=== PATIENT | male | born 1955 | race Hispanic/Latino ===

== ENCOUNTER 2018-01-03 10:20 | Inpatient (IN) | payer BC ==
[2017-12-05 11:10] VITALS: BMI 25.0
[2018-01-03] MEDS ORDERED: Midazolam 2 MG/2 ML VIAL ONE (12:07)
[2018-01-03] MEDS ORDERED: Propofol 10 mg/ml Inj (20 ML) ONE (12:08)
[2018-01-03] MEDS ORDERED: Lidocaine 2% Jelly (Uro-Jet) ONE (12:12)
[2018-01-03] MEDS ORDERED: Ciprofloxacin 400mg/200ml D5W 400 MG/200 ML BAG IVPB ONE (12:12)
[2018-01-03] MEDS ORDERED: Gentamicin 160 MG in Sodium Chloride 0.9% 100 ML IVPB ONE (12:30)
--- NOTE | 2018-01-03 13:50 | PCM.SURG1 ---
Surgeon's Initial Post Op Note - Surgeon's Notes Surgeon: Rose Norris Senior Restaurant Manager: NONE Type of Anesthesia: General LMA Pre-Operative Diagnosis: Urinary retention. BPH Operative Findings: same Post-Operative Diagnosis: same Operation Performed: TURP Specimen/Specimens Removed: urine. Prostate Estimated Blood Loss: EBL {In ML}: 150 Blood Products Given: N/A Post-Op Condition: Good Date of Surgery/Procedure: 01/03/18 Time of Surgery/Procedure: 13:50
[2018-01-03] MEDS: HYDROmorphone 0.5 mg/0.5 ml ISec IVP PRN ×3 (13:55→16:14)
[2018-01-03] MEDS ORDERED: HYDROmorphone 0.5 mg/0.5 ml ISec ONE (13:58)
[2018-01-03] MEDS ORDERED: Potassium Ch 20mEq in D5-1/2NS 1,000 ML IV SCH (14:00)
[2018-01-03] MEDS ORDERED: Lactated Ringer's 1,000 ML IV SCH (14:15)
--- NOTE | 2018-01-03 16:10 | CP.PCM.HP ---
Past Patient History - Past Medical History & Family History Past Medical History?: Yes - Past Social History Smoking Status: Never Smoked - CARDIAC Hx Cardiac Disorders: No - PULMONARY Hx Respiratory Disorders: No - NEUROLOGICAL Hx Neurological Disorder: No - HEENT Hx HEENT Problems: No - RENAL Hx Chronic Kidney Disease: No - ENDOCRINE/METABOLIC Hx Endocrine Disorders: Yes Hx Hyperthyroidism: Yes - HEMATOLOGICAL/ONCOLOGICAL Hx Blood Disorders: No - INTEGUMENTARY Hx Dermatological Problems: No - MUSCULOSKELETAL/RHEUMATOLOGICAL Hx Musculoskeletal Disorders: Yes Hx Falls: Yes Hx Fractures: Yes (Left ankle) Hx Herniated Disk: Yes (Lower back) Hx Osteoarthritis: Yes (Right shoulder) - GASTROINTESTINAL Hx Gastrointestinal Disorders: Yes Hx Bowel Surgery: Yes (BOWEL RESECTIO FOR DIVERTICULITIS) Hx Diverticulitis: Yes - GENITOURINARY/GYNECOLOGICAL Hx Genitourinary Disorders: Yes Hx Bladder Stone: Yes Hx Prostate Problems: Yes Other/Comment: HX: "BLADDER STONES" STENTS PLACED AND REMOVED. HX: URINARY RETENTION-PT. HAS URINARY CATHETER-RETENTION STARTED AFTER SURGERY FOR DIVERTULITIS - PSYCHIATRIC Hx Psychophysiologic Disorder: No - SURGICAL HISTORY Hx Surgeries: Yes Hx Herniorrhaphy: Yes (UMBILICAL) - ANESTHESIA Hx Anesthesia: Yes Hx Anesthesia Reactions: No Hx Malignant Hyperthermia: No Meds Allergies/Adverse Reactions: Allergies Allergy/AdvReac Type Severity Reaction Status Date / Time No Known Allergies Allergy Verified 08/14/16 11:00 Results - Vital Signs Recent Vital Signs: Last Vital Signs Temp 97 F L 01/03/18 13:50 Pulse 67 01/03/18 15:05 Resp 17 01/03/18 15:05 BP 125/75 01/03/18 15:05 Pulse Ox 100 01/03/18 15:05
[2018-01-03 17:17] VITALS: RESP 20
[2018-01-03] MEDS: Oxycodone/Acetaminophen 5/325 mg Tab PO PRN (21:14)
[2018-01-03] MEDS: Ciprofloxacin 400mg/200ml D5W 400 MG/200 ML BAG IVPB SCH (21:53)
[2018-01-04] MEDS: Oxycodone/Acetaminophen 5/325 mg Tab PO PRN ×2 (03:05→09:41)
[2018-01-04 07:43] LABS: HEMOGLOBIN 14.5 g/dL (12.0-18.0); MEAN CELL VOLUME 86.8 fL (80.0-94.0); MEAN CORPUSCULAR HEMOGLOBIN 29.4 pg (27.0-31.0); MEAN CORPUSCULAR HGB CONC 33.9 g/dL (33.0-37.0); MEAN PLATELET VOLUME 8.5 fL (7.2-11.7); RBC 4.92 Mil/uL (4.40-5.90); RED CELL DISTRIBUTION WIDTH 13.6 % (11.5-14.5); WHITE BLOOD COUNT 11.5 K/uL (4.8-10.8)
[2018-01-04 08:05] VITALS: O2SAT 96
[2018-01-04 08:10] LABS: BLOOD UREA NITROGEN 13 mg/dL (9-20); CALCIUM 8.7 mg/dl (8.6-10.4); GFR AFRICAN-AMERICAN > 60; GFR NON-AFRICAN AMERICAN > 60
[2018-01-04] MEDS: Ciprofloxacin 400mg/200ml D5W 400 MG/200 ML BAG IVPB SCH (09:34)
[2018-01-04] MEDS ORDERED: methIMAzole 5 MG TAB PO SCH (10:00)
--- NOTE | 2018-01-04 16:00 | CP.PCM.PN ---
Subjective - Date & Time of Evaluation Date of Evaluation: 01/04/18 Time of Evaluation: 16:00 - Subjective Subjective: PATIENT WAS ADMITTED FOR BPH DENIES CHEST PAIN SOB DENIES DYSURIA NO SIGN OF DISTRESS NOTED Objective - Vital Signs/Intake and Output Vital Signs (last 24 hours): Temp Pulse Resp BP Pulse Ox 98.0 F 74 20 118/73 96 01/04/18 07:00 01/04/18 07:00 01/04/18 07:00 01/04/18 07:00 01/04/18 07:00 Intake and Output: 01/04/18 01/04/18 06:59 18:59 Intake Total 820 850 Output Total 650 3000 Balance 170 -2150 - Medications Medications: Current Medications Docusate Sodium (Colace) 100 mg PO TID [facility] Last Admin: 01/04/18 13:20 Dose: 100 mg Finasteride (Proscar) 5 mg PO DAILY [facility] Last Admin: 01/04/18 09:34 Dose: 5 mg Ciprofloxacin (Cipro 400mg/200ml Dsw) 400 mg in 200 mls @ 133 mls/hr IVPB Q12H MAAME PRN Reason: Protocol Last Admin: 01/04/18 09:34 Dose: 133 mls/hr Methimazole (Tapazole) 5 mg PO DAILY [facility] Last Admin: 01/04/18 09:34 Dose: 5 mg Oxycodone/Acetaminophen (Percocet 5/325 Mg Tab) 1 tab PO Q4H PRN PRN Reason: Pain, moderate (4-7) Stop: 01/06/18 14:01 Last Admin: 01/04/18 09:41 Dose: 1 tab - Labs Labs: 01/04/18 07:36 01/04/18 07:36 Assessment and Plan - Assessment and Plan (Free Text) Assessment: PATIENT SEEN AND EXAMINED AT THE BEDSIDE DAVIS CATH IN PLACE / URINE LIGHT PINK COLOR / NO BLOOD CLOT NOTED DISCUSS WITH DR CHOW WHO CLEAR FOR DC FOLLOW UP WITH DR CHOW IN HIS OFFICE IN 1-2 WEEK ---CALL FOR APPOITMENT FOLLOW UP WITH DR ALCARAZ IN HIS OFFICE ---CALL FOR APPOINTMENT CONTINUE HOME MEDICATION NEW PRESCRIPTION GIVEN PROSCAR 5 MG PO DAILY COLACE 100 MG PO TID FOR 7 DAYS WITH PERCOCET PRESCRIPTION GIVEN BY DR ALCARAZ IN THE CHART ACITIVIY TOLERATED DAVIS CATH CARE DRINK PLENTY OF WATER FOR AT LEAST A WEEK CALL DR CHOW OR DR ALCARAZ OR GO TO THE EMERGENCY ROOM IF SYMPTOMS RETURN OR WORSENING DISCUSS WITH PATIENT WHO AGREE AND VERBALIZED UNDERSTANDING
[2018-01-04 16:19] VITALS: BP 110/73; PULSE 88; TEMP 98.4
--- NOTE | 2018-01-06 11:05 | OP ---
PROCEDURE DATE: 01/03/2018 PREOPERATIVE DIAGNOSES: Urinary retention and prostatic enlargement. POSTOPERATIVE DIAGNOSES: Urinary retention and prostatic enlargement. PROCEDURES: Cystoscopy, transurethral resection of prostate. OPERATING SURGEON Nivia Norris MD PROCEDURE FOLLOWS: The patient received perioperative antibiotics. The patient received general anesthesia via laryngeal mask airway. The patient was placed in lithotomy position. Genitalia were prepped and draped sterilely. The procedure was performed under video endoscopic control. A 26-Yemeni continuous flow resectoscope sheath was introduced under direct vision using the visual obturator. The urethra, prostate and bladder were inspected. FINDINGS: There was no stricture in the anterior urethra. There was evidence of lateral lobe prostatic hypertrophy. The prostatic urethra was approximately 4 cm in length. There was significant intravesical intrusion of the middle lobe. There was moderate bladder trabeculation. The ureteral orifices were identified. There was no bladder tumor. There was no bladder stone. The resectoscope was inserted. Resection of the prostate was performed as follows. Resection was begun at the level of the bladder neck. The ureteral orifices were spared throughout this bladder neck resection. The intravesical middle lobe intrusion was resected as well. Hemostasis was achieved after each section of resection. Thereafter, the anterior roof tissue was resected. Subsequently, the lateral lobes were resected. The floor and apical prostatic tissues were resected as well. There was noted to be increased vascularity of the prostate. The prostatic chips were removed using the Microvasive evacuator. The hemostasis was achieved. The resectoscope was reinserted. There were no residual prostatic chips. The ureteral orifices were intact. Hemostasis was complete. The resectoscope and sheath were removed. A Singletary catheter was inserted. Bladder drainage was clear with mild traction applied. The patient tolerated the procedure without complication. Nivia Norris MD
--- NOTE | 2018-01-07 15:38 | CP.PCM.DIS ---
Provider - Provider Date of Admission: 01/03/18 14:40 Attending physician: Jaciel Bowden MD Time Spent in preparation of Discharge (in minutes): 20 Hospital Course - Lab Results Lab Results: Micro Results 01/03/18 12:45 Urine,Catheterized Urine Culture - Final No Growth (<1,000 CFU/ML) Most Recent Lab Values WBC 11.5 K/uL (4.8-10.8) H 01/04/18 07:36 RBC 4.92 Mil/uL (4.40-5.90) 01/04/18 07:36 Hgb 14.5 g/dL (12.0-18.0) 01/04/18 07:36 Hct 42.7 % (35.0-51.0) 01/04/18 07:36 MCV 86.8 fL (80.0-94.0) 01/04/18 07:36 MCH 29.4 pg (27.0-31.0) 01/04/18 07:36 MCHC 33.9 g/dL (33.0-37.0) 01/04/18 07:36 RDW 13.6 % (11.5-14.5) 01/04/18 07:36 Plt Count 249 K/uL (130-400) 01/04/18 07:36 MPV 8.5 fL (7.2-11.7) 01/04/18 07:36 Sodium 139 mmol/L (132-148) 01/04/18 07:36 Potassium 4.8 mmol/L (3.6-5.2) 01/04/18 07:36 Chloride 100 mmol/L (98-107) 01/04/18 07:36 Carbon Dioxide 31 mmol/L (22-30) H 01/04/18 07:36 Anion Gap 13 (10-20) 01/04/18 07:36 BUN 13 mg/dL (9-20) 01/04/18 07:36 Creatinine 1.0 mg/dL (0.8-1.5) 01/04/18 07:36 Est GFR ( Amer) > 60 01/04/18 07:36 Est GFR (Non-Af Amer) > 60 01/04/18 07:36 Random Glucose 107 mg/dL (75-110) 01/04/18 07:36 Calcium 8.7 mg/dl (8.6-10.4) 01/04/18 07:36 Discharge Plan - Discharge Medications Prescriptions: Docusate [Colace] 100 mg PO TID 7 Days cap Finasteride [Proscar] 5 mg PO DAILY 30 Days tab - Follow Up Plan Condition: GOOD Disposition: HOME/ ROUTINE Instructions: Benign Prostatic Hyperplasia (Enlarged Prostate), How to Care for Your Davis Catheter, Male, Docusate, Finasteride, Oxycodone and Acetaminophen Additional Instructions: FOLLOW UP WITH DR BOWDEN IN HIS OFFICE IN 1-2 WEEK ---CALL FOR APPOITMENT FOLLOW UP WITH DR NORRIS IN HIS OFFICE ---CALL FOR APPOINTMENT CONTINUE HOME MEDICATION NEW PRESCRIPTION GIVEN PROSCAR 5 MG PO DAILY COLACE 100 MG PO TID FOR 7 DAYS WITH PERCOCET PRESCRIPTION GIVEN BY DR NORRIS IN THE CHART ACITIVIY TOLERATED DAVIS CATH CARE DRINK PLENTY OF WATER FOR AT LEAST A WEEK CALL DR BOWDEN OR DR NORRIS OR GO TO THE EMERGENCY ROOM IF SYMPTOMS RETURN OR WORSENING Referrals: Jaciel Bowden MD [Staff Provider] - Holland Norris MD [Staff Provider] - Nivia Norris MD [Staff Provider] -
== END 2018-01-04 17:30 | disposition home or self-care (01) | DRG 714 ==
LOC: C.SDS 10:20 → C.9S 14:40 → C.6T 16:27
PROVIDERS: ADMIT Internal Medicine Critical Care Medicine; ATTEND Internal Medicine Critical Care Medicine
PROC: 0VT08ZZ Resection of Prostate, Via Natural or Artificial Opening Endoscopic (ICD-10-PCS; principal; 2018-01-03 12:00)
DX: N40.1 Benign prostatic hyperplasia with lower urinary tract symptoms (principal); R33.8 Other retention of urine; Z90.49 Acquired absence of other specified parts of digestive tract; Z87.19 Personal history of other diseases of the digestive system